=== PATIENT | female | born 1955 | race Caucasian/White ===

== ENCOUNTER 2022-06-19 18:14 | Observation (INO) ==
[2022-06-19 19:07] LABS: ABS Basophils 0.1 10^3/ul (0-0.2); ABS Eosinophils 0.1 10^3/ul (0-0.6); ABS Lymphocytes 1.3 10^3/ul (1.0-4.8); ABS Monocytes 0.4 10^3/ul (0-0.8); ABS Neutrophils 4.1 10^3/ul (1.5-7.7); Eosinophil % 1.9 %; Hematocrit 41 % (35-47); Hemoglobin 13.6 g/dL (12.0-16.0); Lymphocyte % 21.9 %; Mean Corpuscular HGB Conc 33 g/dL (31-36); Mean Corpuscular Hemoglobin 30 pg (27-31); Mean Corpuscular Volume 92 fL (80-97); Mean Platelet Volume 7.2 fL (7.4-10.4); Nucleated Red Blood Cells % 0.1; Platelet Count 332 10^3/uL (150-450); Red Cell Distribution Width 14 % (10-15); White Blood Count 5.9 10^3/uL (3.5-10.8)
[2022-06-19 19:13] LABS: INR 1.02 (0.89-1.11)
[2022-06-19 19:26] LABS: Albumin 4.4 g/dL (3.2-5.2); Albumin/Globulin Ratio 2.6 (1-3); Calcium 9.2 mg/dL (8.6-10.3); Globulin 1.7 g/dL (2-4); Potassium 3.7 mmol/L (3.5-5.0); Total Bilirubin 0.8 mg/dL (0.2-1.0); Total Protein 6.1 g/dL (6.4-8.9); eGFR CKD-EPI 66.9 (>60)
[2022-06-19 20:28] LABS: High Sensitivity Troponin 1 Hr 4 pg/mL (<15)
[2022-06-19 21:41] LABS: Venous Bicarbonate HCO3 25.3 mmol/L (24-28)
[2022-06-19 21:59] LABS: Magnesium 2.2 mg/dL (1.9-2.7)
[2022-06-19 22:12] LABS: TSH Ultra Thyroid Stim Horm 1.77 mcIU/mL (0.34-5.60)
[2022-06-19 22:58] LABS: Folate 19.64 ng/mL (5.90-24.80)
[2022-06-20] MEDS ORDERED: Enoxaparin 40 MG/0.4 ML SYR SUBCUT SCH
[2022-06-20 01:21] LABS: HDL Cholesterol 75.1 mg/dL
[2022-06-20] MEDS ORDERED: CloBAZam 10 mg TAB (NF) PO SCH (09:00)
[2022-06-20 14:55] VITALS: BP 134/88
== END 2022-06-20 14:56 | disposition home or self-care (01) ==
LOC: ED 18:14 → EDHOLD 18:14 → SUATTDRO 23:47 → EDHOLD 06-20 14:55
PROVIDERS: ADMIT Student in an Organized Health Care Education/Training Program; ATTEND Internal Medicine

== ENCOUNTER 2024-01-23 05:33 | Observation (INO) ==
[~2024-01-23 05:33] MED LIST: NS 0.45% 1000 ml BAG 1,000 ML IV SCH; Naloxone 0.4 mg VIAL 0.4 mg/ml 1 ml VIAL IV PRN; Ondansetron 4 mg VIAL 2 MG/ML 2 ml VIAL IV PRN
[2024-01-23] MEDS ORDERED: Chlorhexidine MOUTHWASH 0.12% 15 ML UDC ONE (05:49)
[2024-01-23] MEDS ORDERED: ceFAZolin 2 GM PREMIX 2 GM/50 ML BAG ONE (06:01)
[2024-01-23 06:22] LABS: Rapid COVID-19 Molecular Undetected (Undetected)
[2024-01-23] MEDS ORDERED: Dexamethasone IV 4 MG/ML VIAL 1 ml VIAL ONE (06:27)
[2024-01-23] MEDS ORDERED: Lidocaine 2% PF 5 ML VIAL ONE (06:27)
[2024-01-23] MEDS ORDERED: fentaNYL 250 mcg/5 ml 50 MCG/ML 5 ml VIAL (250 MCG) ONE (06:27)
[2024-01-23] MEDS ORDERED: Midazolam 2 mg/2 ml VIAL 1 mg/ml 2 ml VIAL (2 mg) ONE (06:27)
[2024-01-23] MEDS ORDERED: Ondansetron 4 mg VIAL 2 MG/ML 2 ml VIAL ONE (06:27)
[2024-01-23] MEDS ORDERED: Propofol 10 MG/ML 20 ML BTL ONE (06:27)
[2024-01-23] MEDS ORDERED: Rocuronium 50 mg VIAL 10 mg/ml 5 ml VIAL (50 mg) ONE ×2 (06:27→08:12)
[2024-01-23] MEDS ORDERED: Lidocaine 1% w EPI 1:100,000 MDV 20 ML VIAL ONE (07:07)
[2024-01-23] MEDS ORDERED: Thrombin 5,000 UNITS(BOVINE) for Ultrasound Guided Pseudoaneursym ONE (07:07)
[2024-01-23] MEDS ORDERED: Gelfoam Sponge SIZE 100 SPONGE ONE (07:07)
[2024-01-23] MEDS ORDERED: ceFAZolin VIAL VIAL ONE (07:07)
[2024-01-23] MEDS ORDERED: Phenylephrine 40 mcg/mL 10mL (400mcg) SYRINGE ONE (07:54)
[2024-01-23] MEDS ORDERED: HYDROmorphone 0.5 MG/0.5 ML SYRINGE ONE (08:10)
[2024-01-23] MEDS ORDERED: Benzocaine/Menthol LOZ MT PRN (09:08)
[2024-01-23] MEDS ORDERED: Dextran 70/Hypromellose Tears Eye Drops 15 ml BTL (for Artificials Tears) BOTH EYES PRN (09:08)
[2024-01-23] MEDS ORDERED: Phenol 1.4% Throat Spray BTL MT PRN (09:08)
[2024-01-23] MEDS ORDERED: Metoclopramide 5 MG/ML VIAL (10 mg) ONE (09:14)
[2024-01-23] MEDS ORDERED: Al Hydrox/Mg Hydrox/Simet LIQ 30 ML UDC PO PRN (09:16)
[2024-01-23] MEDS ORDERED: Senna TAB 8.6 mg TAB PO PRN (09:18)
[2024-01-23] MEDS: Metoclopramide 5 MG/ML VIAL (10 mg) IV PRN (09:29)
[2024-01-23] MEDS ORDERED: fentaNYL 100 mcg/2 ml 50 MCG/ML VIAL ONE (09:34)
[2024-01-23] MEDS: fentaNYL 100 mcg/2 ml 50 MCG/ML VIAL IV PRN (09:36)
[2024-01-23] MEDS: Acetaminophen IV 1 GM/100ML 1,000 MG/100 ML BAG IV ONE (10:27)
[2024-01-23] MEDS: Scopolamine 1 mg/72hr PATCH TRANSDERM ONE (10:28)
[2024-01-23] MEDS: Buffered Lidocaine 1% SYRIN 1 ml INTRADERM ONE (10:28)
[2024-01-23] MEDS: Lactated Ringers 1000 ml BAG 1,000 ML IV SCH ×2 (10:28→11:08)
[2024-01-23] MEDS: Morphine 2 MG/ML SYRINGE IV PRN (11:22)
[2024-01-23] MEDS: CMCS: CloBAZam 10 mg TAB (NF) PO SCH (20:10)
[2024-01-24 06:06] VITALS: BP 106/72
[2024-01-24] MEDS: Ondansetron ODT 4 mg TAB 4 MG TAB PO PRN (09:50)
== END 2024-01-24 10:40 | disposition home or self-care (01) ==
LOC: OR 05:33 → SSU 05:33
PROVIDERS: ADMIT Neurological Surgery; ATTEND Neurological Surgery